=== PATIENT | female | born 1990 | race Caucasian/White ===

== ENCOUNTER 2018-07-22 06:22 | Day surgery (SDC) | payer SELFPAY ==
[2018-07-14 11:41] VITALS: BMI 22.4
[2018-07-22] MEDS ORDERED: LIDOCAINE 1%/EPI 1:100000 (20 ML MULTI DOSE VIAL) ONE ×3 (07:31→18:04)
[2018-07-22] MEDS ORDERED: BUPIVACAINE HCL 0.25% 125 MG/50 ML VIAL ONE ×2 (07:32→12:05)
[2018-07-22] MEDS ORDERED: PROPOFOL 20 ML ONE ×5 (07:37→17:39)
[2018-07-22] MEDS ORDERED: SUCCINYLCHOLINE CHLORIDE 200 MG/10 ML VIAL ONE (07:37)
[2018-07-22] MEDS ORDERED: MIDAZOLAM HCL 2 MG/2 ML SINGLE DOSE VIAL ONE (07:38)
[2018-07-22] MEDS ORDERED: ROCURONIUM BROMIDE 50 MG/5 ML VIAL ONE ×2 (07:38→10:23)
[2018-07-22] MEDS ORDERED: KETAMINE HCL 200 MG/20 ML VIAL ONE (07:38)
[2018-07-22] MEDS ORDERED: ONDANSETRON 4 MG/2 ML VIAL ONE ×3 (07:39→15:20)
[2018-07-22] MEDS ORDERED: LIDOCAINE HCL/PF 2% SDV 5ML VIAL ONE ×2 (07:39→15:16)
[2018-07-22] MEDS ORDERED: DEXAMETHASONE SOD PHOSPHATE 4 MG/1 ML VIAL ONE (07:39)
[2018-07-22] MEDS ORDERED: KETOROLAC TROMETHAMINE 30 MG/1 ML VIAL ONE ×2 (07:39→14:17)
[2018-07-22] MEDS ORDERED: ceFAZolin SODIUM 1 GM VIAL ONE (07:39)
[2018-07-22] MEDS ORDERED: SODIUM CHLORIDE 0.9% P/F 10 ML VIAL IJ ONE (08:00)
[2018-07-22] MEDS ORDERED: MAGNESIUM SULF 50% (8.12 MEQ/2 ML-1 GM VIAL) ONE (09:08)
[2018-07-22] MEDS ORDERED: ePHEDrine SULFATE 50 MG/1 ML AMPULE ONE (09:32)
[2018-07-22] MEDS ORDERED: ESMOLOL HCL 100,000 MCG/10 ML VIAL ONE (10:25)
[2018-07-22] MEDS ORDERED: METOPROLOL TARTRATE 5 MG/5 ML VIAL ONE (14:32)
[2018-07-22] MEDS ORDERED: GLYCOPYRROLATE 0.2 MG/1 ML VIAL ONE (14:32)
[2018-07-22] MEDS ORDERED: NEOSTIGMINE METHYLSULFATE 0.5 MG/ML - 10 ML MDV ONE (14:32)
[2018-07-22] MEDS ORDERED: ACETAMINOPHEN INJECTION 100 ML IVPB ONE (14:49)
[2018-07-22] MEDS ORDERED: DESFLURANE GAS 240 ML BOTTLE IH ONE (17:13)
[2018-07-22] MEDS ORDERED: HYDROmorphone HCL/PF 1 MG/ML AMP ONE (18:11)
[2018-07-22] MEDS ORDERED: LIDOCAINE 1%/EPI 1:100000 (50 ML MULTI DOSE VIAL) INF ONE (18:21)
[2018-07-22] MEDS ORDERED: GUM MASTIC/STORAX/MSAL/ALCOHOL 1 DRP DROPSBTL MC ONE (18:52)
[2018-07-22] MEDS ORDERED: BUPIVACAINE HCL/PF 0.25% (2.5MG/ML) 10 ML VIAL IJ ONE (19:09)
[2018-07-22] MEDS ORDERED: PROMETHAZINE HCL 25 MG/1 ML VIAL IVPUSH PRN (19:33)
[2018-07-22] MEDS ORDERED: ONDANSETRON 4 MG/2 ML VIAL IVPUSH PRN (19:33)
[2018-07-22] MEDS ORDERED: ACETAMINOPHEN 1000 MG/100 ML VIAL (NON FORMULARY) IVPB ONE (19:33)
[2018-07-22] MEDS ORDERED: oxyCODONE HCL 5 MG TABLET PO PRN ×2 (19:33)
[2018-07-22] MEDS ORDERED: LACTATED RINGERS SOLUTION 1,000 ML IV SCH ×2 (19:45→21:15)
[2018-07-22] MEDS ORDERED: ACETAMINOPHEN 325 MG TABLET (FP) PO PRN (21:02)
[2018-07-22] MEDS ORDERED: ZOLPIDEM TARTRATE 5 MG TABLET PO PRN (21:02)
[2018-07-22] MEDS ORDERED: HYDROmorphone HCl 2 MG/ML VIAL IVPB PRN (21:10)
[2018-07-22] MEDS ORDERED: DOCUSATE SODIUM 100 MG CAPSULE (FP) PO PRN (21:10)
[2018-07-23] MEDS: CEFAZOLIN 1 GM/D5W 1 GM/50 ML BAG IVPB SCH ×2 (02:20→09:30)
[2018-07-23] MEDS ORDERED: ENOXAPARIN NA (PORCINE) 30 MG/0.3 ML DISP.SYRIN SQ SCH (07:30)
[2018-07-23 10:40] VITALS: BP 100/45; PULSE 64; TEMP 98.9
--- NOTE | 2018-07-27 11:50 | PATH ---
Surgical Pathology Report Patient Name: SARAH FANG [facility]. Rec. #: [id number] /Age/Gender: 1990 (Age: 27) / F Account: [id number] Location: [facility] Taken: 07/22/2018 Received: 07/22/2018 Reported: 07/27/2018 Physicians: Balbina Dias M.D. Specimen(s) Received A: RIGHT BREAST SKIN AND TISSUE B: LEFT BREAST SKIN AND TISSUE C: RIGHT BREAST DENSE AREA Clinical History Cosmetic Final Diagnosis A. RIGHT BREAST SKIN AND TISSUE, EXCISION: BREAST TISSUE WITH STROMAL FIBROSIS. SEGMENTS OF SKIN WITH NO SIGNIFICANT PATHOLOGIC CHANGE. B. LEFT BREAST SKIN AND TISSUE, EXCISION: BREAST TISSUE WITH MICROCYSTS AND STROMAL FIBROSIS. SEGMENTS OF SKIN WITH NO SIGNIFICANT PATHOLOGIC CHANGE. C. RIGHT BREAST DENSE AREA, EXCISION: BREAST TISSUE WITH STROMAL FIBROSIS AND APOCRINE METAPLASIA. Electronically Signed Yeison Balderas M.D. Gross Description A. Received in formalin labeled "right breast skin and tissue," is a 292 g, 16.0 x 15.0 x 3.5 cm aggregate of abundant betts-yellow, unoriented portions of fibroadipose tissue and betts, unremarkable skin. Sectioning reveals abundant dense, white, focally firm fibrous tissue. [employer] sections are submitted in 4 cassettes. B. Received in formalin labeled "left breast skin and tissue," is a 304 g, 20.0 x 15.0 x 4.5 cm aggregate of abundant betts-yellow, unoriented portions of fibroadipose tissue and betts, unremarkable skin. Sectioning reveals abundant dense, white, focally firm fibrous tissue. [employer] sections are submitted in 4 cassettes. C. Received in formalin labeled "right breast dense area," is a 3.0 x 2.3 x 1.4 cm irregular, unoriented portion of fibroadipose tissue. There is no needle localization wire present. There is no skin or nipple present. Sectioning reveals diffuse dense, white fibrous tissue. No definitive mass is identified. [employer] sections are submitted in 3 cassettes. 07/26/2018 saudi07/26/2018
== END 2018-07-23 14:00 | disposition home or self-care (01) ==
LOC: FASU 06:22 → FM/S 21:22 → FASU 07-23 14:00
PROVIDERS: ATTEND Surgery
PROC: 0H0V0ZZ Alteration of Bilateral Breast, Open Approach (ICD-10-PCS; principal; 2018-07-22 09:36)
PROC: 0H0V0ZZ Alteration of Bilateral Breast, Open Approach (ICD-10-PCS; 2018-07-22 09:36)
DX: Z41.1 Encounter for cosmetic surgery (principal)
CPT/HCPCS: 81025; 88305-TC; 94760; J0131